=== PATIENT | female | born 1985 | race Caucasian/White ===

== ENCOUNTER 2019-06-03 00:49 | Day surgery (SDC) | payer OTHER, SELFPAY ==
[2019-06-01 14:29] VITALS: BMI 20.9
--- NOTE | 2019-06-02 07:27 | PM.IMHP ---
H&P: HPI History of Present Illness Chief complaint: missed ab Narrative: Salnia Pascual is a 34 year old female 4 para 2 in her 1st trimester with an abnormal . She will undergo a suction dilatation curettage. Risks and benefits were reviewed in full Review of Systems Review of Systems: All systems reviewed & are unremarkable except as noted in HPI and below PMFSH Past Medical History Medical History Back pain Depression Social History Social History Gender identity (if verbalized by the patient): Female Meds Home Medications and Allergies Home Medications Medication Instructions Recorded Confirmed Type No Home Medications 06/01/19 06/01/19 History Allergies Allergy/AdvReac Type Severity Reaction Status Date / Time No Known Allergies Allergy Unverified 06/01/19 14:27 Exam Const: General: no acute distress Eyes: General: appearance normal, both eyes and all related structures Neck: Neck: supple and no JVD Thyroid: thyroid normal Resp: Effort & Inspection: normal respiratory effort Auscultation: clear to auscultation bilaterally Cardio: Rate: regular rate Rhythm: regular rhythm GI: Inspection: non-distended GI Palp: Yes Soft to palpation, No Tenderness to palpation present (GI) and No Guarding due to palpation present (GI) Auscultation: normal bowel sounds : General: Yes bladder normal to palpation External Female Exam: normal external appearance Speculum Exam - Vagina: normal vaginal discharge and No vaginal bleeding Speculum Exam - Cervix: nontender Bimanual exam- vagina & uterus: bladder normal to palpation and No Cervical tenderness present OB/external & speculum: No vaginal bleeding Skin: General skin exam: no rashes or lesions noted Extrem: General: normal to inspection and no edema Psych: Mental Status: mental status grossly normal Affect: normal affect Assessment and Plan Additional Plan impression: 1St trimester missed AB Plan: Suction dilatation curettage
--- NOTE | 2019-06-03 06:34 | WPDHPUPDATE1 ---
History and Physical Update Update Date/Time: 06/03/19 06:34 History and Physical has been reviewed, including an updated exam of the patient. There are NO changes in the patient's condition. Risks, benefits, and alternatives have been discussed and questions answered. Patient agrees to proceed with procedure.
[2019-06-03 06:38] VITALS: BP 99/65; PULSE 85; RESP 20; TEMP 38.1; O2SAT 100
[2019-06-03] MEDS: LACTATED RINGERS 1,000 ML 30 ML IV CONT (06:45)
--- NOTE | 2019-06-03 07:10 | P.PNAN_ITS ---
Anes - Initial Pre Proc Eval Procedure: Operation Date: 06/03/19 07:30 Proposed Procedures p Suction Dilation and Curettage - Lukasz Poole MD Date/Time: 06/03/19 07:10 Surgeon: Lukasz Poole MD Pre Op Diagnosis: missed ab Patient Data Age: 34 Gender: F Height: 5 ft 5 in Weight: 57.2 kg Last Vital Signs Temp 100.5 F H 06/03/19 06:38 Pulse 85 06/03/19 06:38 Resp 20 06/03/19 06:38 BP 99/65 L 06/03/19 06:38 Pulse Ox 100 06/03/19 06:38 Allergies Allergy/AdvReac Type Severity Reaction Status Date / Time No Known Allergies Allergy Unverified 06/01/19 14:27 Home Medications Medication Instructions Recorded Confirmed Type hydrocodone-acetaminophen [[place]] 1 tablet PO Q4H PRN #20 tablet 06/03/19 Rx Patient hx anesthesia problems: none Family hx anesthesia problems: none PMFSH Past Medical History Medical History Back pain Depression Social History Social History Gender identity (if verbalized by the patient): Female Anes - Eval Final PreProcedure Day of Procedure 06/03/19 07:10 Patient weight: normal Heart: regular rate and rhythm Lungs: clear to auscultation Airway: Mallampati scale class II Neurological: alert and oriented Last oral intake: >/= 8 hours ASA classification: II Emergent: no Anesthetic plan: proceed Anesthesia type and monitoring: general GIVS and standard monitoring Informed Consent: The patient's anesthetic plan and its attendant risks and benefits were discussed with the patient/family/POA. Questions were solicited and answers provided to the satisfaction of the patient/family/POA.
--- NOTE | 2019-06-03 07:47 | PM.PROC ---
Procedure Note - Detailed Date of procedure: 06/03/19 Pre-op diagnosis: missed ab Surgeon: Lukasz Poole MD Postop diagnosis: 1st trimester missed AB Procedure: Suction dilatation and curettage EBL: 75cc Anesthesia: IV sedation and local Findings: Products of conception. Uterus is sounded to 11cm. Complications: None the patient is Rh positive and did not require RhoGAM Description of procedure: The patient was prepped and draped in the normal sterile fashion and placed in the dorsal lithotomy position. Under l excellent IV sedation a weighted speculum was placed in the posterior fornix of the vagina. The anterior lip of the cervix grasped with a single-tooth tenaculum. 2.5cc of 1% xylocaine anesthesia placed at 2, 4, 6, 8:00 a.m. in the cervix. Uterus sounded to 11cm and noted to be retroverted. Serial dilatation with fragmented dilators performed. This was followed by passage of the 10. Suction curette which was passed over the entire 360?. When a good grating sound was heard the procedure was finished. Blood loss was estimated at75cc. All sponge, needle, instrument counts were correct. There were no immediate complications
[2019-06-03 07:49] VITALS: BP 82/54; PULSE 82; RESP 12; O2SAT 99
[2019-06-03 08:00] VITALS: BP 97/55; PULSE 86; RESP 12; O2SAT 100
[2019-06-03 08:30] VITALS: BP 89/63; PULSE 80; RESP 14; O2SAT 100
== END 2019-06-03 09:15 | disposition home or self-care (01) ==
PROVIDERS: PCP Student in an Organized Health Care Education/Training Program; Visit Provider Obstetrics & Gynecology
PROC: (CPT 59820; principal; 2019-06-03 07:30)
DX: O02.1 Missed abortion (principal)
CPT/HCPCS: 59820; 88264; 88305; A9270; J2250; J2704; J3010; J7120

== ENCOUNTER 2019-10-06 08:53 | Day surgery (SDC) | payer OTHER, SELFPAY ==
[2019-10-06] VITALS (11 sets, daily range): BP systolic 93–119; BP diastolic 55–74; PULSE 66–88; RESP 11–18; TEMP 36–37; O2SAT 100
--- NOTE | ~2019-10-06 | CT_ITS ---
EXAMINATION: CT abdomen pelvis w con DATE: 10/06/2019 11:42 INDICATION: Abdominal pain TECHNIQUE: Computed tomography (CT) of the abdomen and pelvis was performed with 100 mL Omnipaque-350 intravenous contrast. Automated exposure control and iterative reconstruction technique were employe d. The dose-length product was 198.00 mGy-cm. COMPARISON: None FINDINGS: Lung bases are clear. Visualized inferior heart is normal. No pericardial or pleural effusion. Liver, gallbladder, spleen, pancreas, bilateral adrenal glands and kidneys are normal. There is a calcified appendicolith at the appendiceal orifice. The more distal appendix is dilated to 9 mm with thickened enhancing wall consistent with acute appendicitis. Bowels are otherwise unremarkable. Bladder and an teverted uterus are normal. 1.9 cm right adnexal cyst or follicle. Smaller 12 mm cyst at the left ova ry with more prominent peripheral enhancement possibly a corpus luteum cyst. Increased prominence of the contrast opacified left parametrial vessels and gonadal vein which can be seen with pelvic vascul ar congestion syndrome. Small amount of likely physiologic free fluid in the cul-de-sac. No abscess o r free intraperitoneal gas. No pathologically enlarged abdominal or pelvic lymphadenopathy. Bones are unremarkable. IMPRESSION: 1. Acute appendicitis. Dr. Estevez discussed these findings with Dr. Mckeon at 11:50 AM. Reviewed, dictated and finalized at location A. IMPRESSION: 1. Acute appendicitis. Dr. Estevez discussed these findings with Dr. Linda petit t 11:50 AM.
--- NOTE | 2019-10-06 09:09 | ED.ABDPAIN ---
HPI - Abdominal Pain General Chief Complaint: Abdominal Pain Stated Complaint: ABD PAIN [id number] Time Seen by Provider: 10/06/19 09:00 Source: RN notes reviewed History of Present Illness HPI narrative: Patient presents emergency room from home for abdominal pain. Patient states symptoms began last night approximately 2:30 AM. The pain is located in the epigastric region and associated with nausea and vomiting. Denies any fevers or chills chest pain shortness of breath diarrhea or any other symptoms. States she tried taking Tylenol at home with normal relief Related Data Allergies Allergy/AdvReac Type Severity Reaction Status Date / Time No Known Allergies Allergy Unverified 06/01/19 14:27 Review of Systems Review of Systems: Narrative: Gen.: Denies fevers or chills ENT: Denies congestion Respiratory: Denies shortness of breath or cough CV: Denies chest pain or palpitations GI: See HPI denies burning, urgency, frequency or hematuria Musculoskeletal: Denies back pain or muscle pain Neuro: Denies numbness, tingling, weakness or focal weakness Skin: Denies rash Except as documented, all other systems reviewed and negative [facility] Past Medical History Medical History Back pain Depression Social History Social History (Updated 10/06/19 @ 09:09 by Jesu Mckeon DO) Smoking status: Never smoker Gender identity (if verbalized by the patient): Female Exam Narrative: Exam Narrative: APPEARANCE: No acute distress, nontoxic, resting in bed HEENT: Normocephalic, atraumatic, OMM RESPIRATORY: No respiratory distress, clear to auscultation bilaterally with no rhonchi wheezing or rales CARDIOVASCULAR: RRR s murmur ABDOMINAL: Soft, nondistended, tender palpation epigastric and left upper quadrant, no tenderness right upper quadrant, right lower quadrant left lower quadrant, no rebound or guarding MUSCULOSKELETAl: Moves all extremities. No clubbing, cyanosis or edema. NEURO: Awake and alert. Following commands, speech normal, no focal deficits SKIN:: Warm, dry. Normal Color PSYCHIATRIC: Normal affect/mood Course Course Emergency Course: Discussed with Dr. Santos for general surgery presentation work-up. This time will take patient to the OR Discussed with patient results of work-up and plan for or in agreement at this time Vital Signs Vital signs: Vital Signs Temperature 97.4 F L 10/06/19 09:07 Pulse Rate 73 10/06/19 09:07 Respiratory Rate 18 10/06/19 09:07 Blood Pressure 114/74 10/06/19 09:07 Pulse Oximetry 100 10/06/19 09:07 Temperature 97.4 F L 10/06/19 09:07 Pulse Rate 76 10/06/19 12:08 Respiratory Rate 18 10/06/19 12:08 Blood Pressure 116/66 10/06/19 12:08 Pulse Oximetry 100 10/06/19 12:08 MDM - Abdominal Pain Lab Data Result diagrams: 10/06/19 09:11 10/06/19 09:11 Labs: Lab Results 10/06/19 10/06/19 10/06/19 Range/Units 09:11 09:11 09:12 WBC 12.5 H (4.5-10.0) K/mm3 RBC 4.98 (4.2-5.4) M/mm3 Hgb 15.0 (12.0-15.0) g/dL Hct 43.9 (37.0-47.0) % MCV 88.2 (80-100) fl MCH 30.1 (26-34) pg MCHC 34.2 (32-36) g/dl RDW 11.7 (11.5-14.5) % Plt Count 262 (150-375) k/mm3 MPV 10.2 (7.4-10.4) fl Immature Gran % (Auto) 0.5 (0-0.5) % Neut % (Auto) 78.4 H (45.5-73.1) % Lymph % (Auto) 12.2 L (18.3-44.2) % [place] % (Auto) 8.1 (2.6-8.5) % Eos % (Auto) 0.3 (0-4.4) % Baso % (Auto) 0.5 (0.2-1.2) % Lymph # (Auto) 1.52 (0.9-3.2) K/mm3 [place] # (Auto) 1.0 H (0.1-0.6) K/mm3 Eos # (Auto) 0.0 (0-0.3) K/mm3 Baso # (Auto) 0.1 (0.0-0.1) K/mm3 Abs Immat Gran (auto) 0.06 H (0.00-0.031) K/mm3 Absolute Neuts (auto) 9.8 H (1.3-6.7) K/mm3 Absolute Nucleated RBC 0.0 (0.0-0.012) K/mm3 Nucleated RBC % 0.0 (0.0-0.2) % Sodium 138 (137-145) mmol/L Potassium 4.0 (3.4-5.0) mmol/L Chloride 104 (
[2019-10-06] MEDS: SODIUM CHLORIDE 0.9% IV 1,000 ML 999 ML IV CONT (09:17)
[2019-10-06] MEDS: KETOROLAC 30 MG/ML VIAL (*BKC) IV PUSH (09:18)
[2019-10-06] MEDS: ONDANSETRON INJ 4 MG/2 ML VIAL IV PUSH ×2 (09:18→15:23)
[2019-10-06 09:19] LABS: Basophils Absolute Auto 0.1 K/mm3 (0.0-0.1); Basophils Percent Auto 0.5 % (0.2-1.2); Eosinophils Percent Auto 0.3 % (0-4.4); Hematocrit 43.9 % (37.0-47.0); Immature Granulocyte Absolute 0.06 K/mm3 (0.00-0.031); Immature Granulocyte Percent A 0.5 % (0-0.5); Lymphocytes Absolute Auto 1.52 K/mm3 (0.9-3.2); Lymphocytes Percent Auto 12.2 % (18.3-44.2); Mean Corpuscular HGB Conc 34.2 g/dl (32-36); Mean Corpuscular Hemoglobin 30.1 pg (26-34); Mean Corpuscular Volume 88.2 fl (80-100); Mean Platelet Volume 10.2 fl (7.4-10.4); Monocytes Percent Auto 8.1 % (2.6-8.5); Neutrophils Absolute Auto 9.8 K/mm3 (1.3-6.7); Neutrophils Percent Auto 78.4 % (45.5-73.1); Platelet Count Result 262 k/mm3 (150-375); Red Blood Count 4.98 M/mm3 (4.2-5.4); Red Cell Distribution Width 11.7 % (11.5-14.5); White Blood Count 12.5 K/mm3 (4.5-10.0)
[2019-10-06] MEDS: FAMOTIDINE 20 MG/2 ML VIAL IV PUSH (09:20)
[2019-10-06 09:25] LABS: Add Urine Microscopic? YES; Appearance Urine Clear (Clear); Bilirubin Urine Negative (Negative); Blood Urine Negative (Negative); Color Urine Yellow (Yellow); Glucose Urine UA Negative (Negative); Ketones Urine Negative (Negative); Leukocyte Esterase Ur Trace LEU/UL (Negative); Mucus Urine Moderate /lpf; Nitrate Urine Negative (Negative); Protein Urine Negative (Negative); RBC Urine 0-2 /hpf (0-2); Squamous Epithelial Cell Urine Many /hpf (Few); Urobilinogen Urine Negative mg/dL (<2.0); WBC Urine 0-3 /hpf
[2019-10-06 09:27] LABS: Specific Grav Ur 1.034 (1.001-1.035)
[2019-10-06 09:32] LABS: Alanine Aminotransferase 12 U/L (4-35); Albumin Level 4.7 g/dL (3.5-5.1); Alkaline Phosphatase 46 U/L (38-126); Anion Gap 10 mmol/L (8-16); Aspartate Amino Transferase 20 U/L (14-36); Bilirubin,Total 0.7 mg/dL (0.2-1.3); Blood Urea Nitrogen 21 mg/dL (7-17); Calcium 9.6 mg/dL (8.4-10.2); Carbon Dioxide 24 mmol/L (22-30); Chloride 104 mmol/L (98-107); Estimated Glomerular Filt Rate > 60; Glucose 111 mg/dL (65-105); Lipase 72 U/L (23-300); Sodium 138 mmol/L (137-145)
[2019-10-06] MEDS: PROMETHAZINE HCL 25 MG/ML AMPUL 12.5 MG IV PUSH (11:34)
--- NOTE | 2019-10-06 13:05 | WPDANESEPPF ---
Anes - Initial Pre Proc Eval Procedure: Operation Date: 10/06/19 14:30 Proposed Procedures p Laparoscopic Appendectomy, possible open - Shreya Santos MD Date/Time: 10/06/19 13:05 Surgeon: Shreya Santos MD Pre Op Diagnosis: ABD PAIN [id number] Patient Data Age: 34 Gender: F Height: Weight: 54.4 kg Last Vital Signs Temp 36.3 C L 10/06/19 09:07 Pulse 76 10/06/19 12:08 Resp 18 10/06/19 12:08 BP 116/66 10/06/19 12:08 Pulse Ox 100 10/06/19 12:08 Allergies Allergy/AdvReac Type Severity Reaction Status Date / Time No Known Allergies Allergy Unverified 06/01/19 14:27 Home Medications Medication Instructions Recorded Confirmed Type hydrocodone-acetaminophen [[place]] 1 tablet PO Q4H PRN #20 tablet 06/03/19 Rx Laboratory Tests 10/06/19 10/06/19 10/06/19 09:11 09:11 09:12 WBC 12.5 K/mm3 H K/mm3 (4.5-10.0) RBC 4.98 M/mm3 M/mm3 (4.2-5.4) Hgb 15.0 g/dL g/dL (12.0-15.0) Hct 43.9 % % (37.0-47.0) MCV 88.2 fl fl (80-100) MCH 30.1 pg pg (26-34) MCHC 34.2 g/dl g/dl (32-36) RDW 11.7 % % (11.5-14.5) Plt Count 262 k/mm3 k/mm3 (150-375) MPV 10.2 fl fl (7.4-10.4) Immature Gran % (Auto) 0.5 % % (0-0.5) Neut % (Auto) 78.4 % H % (45.5-73.1) Lymph % (Auto) 12.2 % L % (18.3-44.2) [place] % (Auto) 8.1 % % (2.6-8.5) Eos % (Auto) 0.3 % % (0-4.4) Baso % (Auto) 0.5 % % (0.2-1.2) Lymph # (Auto) 1.52 K/mm3 K/mm3 (0.9-3.2) [place] # (Auto) 1.0 K/mm3 H K/mm3 (0.1-0.6) Eos # (Auto) 0.0 K/mm3 K/mm3 (0-0.3) Baso # (Auto) 0.1 K/mm3 K/mm3 (0.0-0.1) Abs Immat Gran (auto) 0.06 K/mm3 H K/mm3 (0.00-0.031) Absolute Neuts (auto) 9.8 K/mm3 H K/mm3 (1.3-6.7) Absolute Nucleated RBC 0.0 K/mm3 K/mm3 (0.0-0.012) Nucleated RBC % 0.0 % % (0.0-0.2) Sodium 138 mmol/L mmol/L (137-145) Potassium 4.0 mmol/L mmol/L (3.4-5.0) Chloride 104 mmol/L mmol/L (98-107) Carbon Dioxide 24 mmol/L mmol/L (22-30) Anion Gap 10 mmol/L mmol/L (8-16) BUN 21 mg/dL H mg/dL (7-17) Creatinine 0.90 mg/dL mg/dL (0.7-1.0) Estim Creat Clear Calc Not Reportable Estimated GFR > 60 (59 - ) Glucose 111 mg/dL H mg/dL (65-105) Calcium 9.6 mg/dL mg/dL (8.4-10.2) Total Bilirubin 0.7 mg/dL mg/dL (0.2-1.3) AST 20 U/L U/L (14-36) ALT 12 U/L U/L (4-35) Alkaline Phosphatase 46 U/L U/L (38-126) Total Protein 9.0 g/dL H g/dL (6.3-8.2) Albumin 4.7 g/dL g/dL (3.5-5.1) Lipase 72 U/L U/L (23-300) Urine Color Yellow (Yellow) Urine Appearance Clear (Clear) Urine pH 5.0 (5.0-9.0) Ur Specific [place] 1.034 (1.001-1.035) Urine Protein Negative mg/dL mg/dL (Negative) Urine Glucose (UA) Negative mg/dL mg/dL (Negative) Urine Ketones Negative mg/dL mg/dL (Negative) Ur Blood (Man) Negative (Negative) Urine Nitrate Negative (Negative) Urine Bilirubin Negative (Negative) Urine Urobilinogen Negative mg/dL mg/dL (<2.0) Leukocyte Esterase Rfl Trace RUAL/UL H RAUL/UL (Negative) Urine RBC 0-2 /hpf /hpf (0-2) Urine WBC 0-3 /hpf /hpf Ur Squamous Epith Cells Many /hpf H /hpf (Few) Urine Mucus Moderate /lpf H /lpf Patient hx anesthesia problems: none Family hx anesthesia problems: none PMFSH Past Medical History Medical History Back pain Depression Social History Social History Smoking status: Never s
--- NOTE | 2019-10-06 13:06 | PM.IMHP ---
H&P: HPI History of Present Illness Date/Time: 10/06/19 13:06 Chief complaint: ABD PAIN [id number] Narrative: Salina Pascual is a 34 year old female presenting to ED c/o severe, diffuse abd pain that awakened her early this am. Pt reports pain is constant and now localized more to RLQ. Pt reports some anorexia and nausea. Pt also reports some mild radiation to her back. Pt denies any previous episodes. Review of Systems Constitutional: Constitutional: Denies anorexia, Denies chills, Denies fatigue, Denies headache(s), Denies lethargy, Denies malaise, Denies night sweats, Denies poor appetite, Denies weakness, Denies weight gain and Denies weight loss Eyes: Eyes: Reports no additional eye complaints and Denies change in vision ENT: Reports system reviewed and no additional complaints, except as documented, Reports Normal hearing present, Denies headache(s), Denies hearing loss and Denies sore throat Cardiovascular: Cardiovascular: Denies chest pain, Denies palpitations and Denies dyspnea Respiratory: Respiratory: Denies cough and Denies dyspnea Gastrointestinal: Gastrointestinal: Reports abdominal pain, Denies change in stool character, Denies constipation, Denies diarrhea, Reports nausea and Denies vomiting Genitourinary: Genitourinary: Denies urinary frequency, Denies dysuria and Denies urinary urgency Musculoskeletal: Musculoskeletal: Reports no additional musculoskeletal complaints Integumentary/Breasts: Skin/Breast: Denies pruritus, Denies lesions and Denies wounds Neurologic: Denies confusion and Denies headache(s) Psychiatric: Psychiatric: Reports no additional psychiatric complaints and Denies confusion Endocrine: Endocrine: Reports no additional endocrine complaints, Denies fatigue and Denies palpitations Hematologic/Lymphatic: Hematologic/Lymphatic: Reports no additional hematologic/lymphatic complaints Allergic/Immunologic: Allergic/Immunologic: Reports no additional allergic/immunologic complaints PMF Past Medical History Medical History Back pain Depression Social History Social History Smoking status: Never smoker Gender identity (if verbalized by the patient): Female Meds Home Medications and Allergies Home Medications Medication Instructions Recorded Confirmed Type hydrocodone-acetaminophen [[place]] 1 tablet PO Q4H PRN #20 tablet 06/03/19 Rx Allergies Allergy/AdvReac Type Severity Reaction Status Date / Time No Known Allergies Allergy Unverified 06/01/19 14:27 Vital Signs Vital Signs - 24 hr 10/06/19 09:07 10/06/19 12:08 Temperature 36.3 C L Pulse Rate 73 76 Respiratory Rate 18 18 Blood Pressure 114/74 116/66 Pulse Oximetry 100 100 Exam Const: General: cooperative, healthy appearing, no acute distress and well developed; No confusion Orientation/consciousness: patient oriented x3 and No confusion HENMT: Head: normal to inspection, normocephalic and atraumatic Mouth: Yes Normal oral and palatal mucosa present and Yes moist mucous membranes Teeth and gingiva: dentition normal Eyes: Conjunctivae: conjunctivae normal Pupils: Equal, round and reactive pupils present EOM: EOMs intact bilaterally Neck: Neck: normal visual inspection, full ROM, no lymphadenopathy, trachea midline and supple Lymphatic: no lymphadenopathy noted Chest: Chest palpation & inspection: normal inspection of the chest Resp: Effort & Inspection: normal respiratory effort Auscultation: clear to auscultation bilaterally Cardio: Jugular venous distension: no JVD Rate: regular rate Rhythm: regular rhythm Heart sounds: S1 normal heart sound present and S2 normal heart sound present Peripheral pulses: Peripheral pulses 2+ throughout GI: Inspection: normal to inspection and distended GI Palp: Yes Soft to palpation, Yes Tenderness to palpation present (GI), Yes Guarding due to palpat
[2019-10-06] MEDS: LACTATED RINGERS 1,000 ML 30 ML IV CONT ×2 (13:24→14:40)
[2019-10-06] MEDS: SCOPOLAMINE 1.5 MG PATCH TRANSDERM (13:25)
[2019-10-06] MEDS: BUPIVACAINE/EPINEPHRINE 0.5% 30 ML VIAL INFILTRATE (14:01)
--- NOTE | 2019-10-06 14:19 | PM.PROC ---
Procedure Note - Detailed Date of procedure: 10/06/19 Pre-op diagnosis: ABD PAIN [id number] acute appendicitis Post-op diagnosis: same Procedure performed: Laparoscopic appendectomy Description of procedure: The patient was brought into the operating room placed in the supine position. After adequate induction of general anesthesia, the patient was prepped and draped in normal sterile fashion. A time-out was then done to verify the patient's identity as well as the procedure being performed. I began by making a 5 mm incision in the infraumbilical region. A 5 mm Optiview trocar within used to gain access into the peritoneal cavity. Once into the peritoneal cavity, CO2 gas was insufflated. After adequate pneumoperitoneum was achieved, the laparoscope was placed into the 5 mm trocar. Under direct visualization, I went ahead and placed a further 5 mm suprapubic port as well as a 12 mm port in the left lower abdomen. At this point, I was able to visualize cecum. The cecum was retracted both cephalad and medial, and this allowed us to expose the appendix. The appendix was noted to be very dilated, injected, and inflamed. There was no obvious perforation of the appendix. I then grasped the appendix near the tip of the appendix and retracted both anterior and lateral. This allowed exposure of the base of the appendix with the cecum. I then created a window with the Angie dissector between the appendix and the mesoappendix at the base of the appendix. Once this was achieved, a vascular staple load on the Endo-HARESH was placed through the 12 mm port site and subsequently transected the mesoappendix. I then reloaded the Endo-HARESH with a blue staple load and transected the base of the appendix with the cecum. Once the appendiceal specimen was completely detached, a Endo pouch was placed through the 12 mm port site. The appendix was placed into the Endo pouch and removed through the 12 mm port site. The appendix will now be sent to pathology for further review. I then visualized the right lower quadrant, both staple lines were noted to be intact and hemostatic. No other pathology was noted in the right lower quadrant or pelvis. I then moved the laparoscope to the 5 mm suprapubic port. I then visualized our port of entry at the 5 mm infraumbilical site. No iatrogenic injury or other pathology was seen in the upper abdomen. I then desufflated the abdomen and all ports were removed. The fascia of the 12 mm port site was closed with an 0 Vicryl figure of 8 suture. All port sites were then closed with 4 O Monocryl subcuticular suture. The patient tolerated the procedure well and was extubated in the operating room postoperatively. The patient will be transferred to the recovery room in stable condition. Implants: none Anesthesia: GETA Surgeon: Shreya Santos MD Estimated blood loss (mL): 5 Drains: No Packing: No Pathology: yes Complications: No immediate complications Condition: stable Disposition: PACU Findings: Acute uncomplicated appendicitis
[2019-10-06] MEDS: diphenhydrAMINE HCl INJ 50 MG/ML VIAL 12.5 MG IV PUSH (15:47)
== END 2019-10-06 16:51 | disposition home or self-care (01) ==
LOC: ANHED 12:14 → ANHSURGERY 12:33
PROVIDERS: Emergency Provider Emergency Medicine; PCP Student in an Organized Health Care Education/Training Program; Visit Provider Surgery
PROC: 0DTJ4ZZ Resection of Appendix, Percutaneous Endoscopic Approach (ICD-10-PCS; CPT 44970; principal; 2019-10-06 14:30)
DX: K35.80 Unspecified acute appendicitis (principal); M54.5 Low back pain
CPT/HCPCS: 44970; 36415; 74177; 80053; 81001; 81025; 83690; 85025; 88304; 96361; 96365; 96375; 99285; A9270; J0330; J1100; J1170; J1200; J1885; J2250; J2405; J2543; J2550; J2704; J3010; J7030; J7120; Q9967

== ENCOUNTER 2020-04-17 09:47 | Outpatient (CLI) | payer OTHER, SELFPAY | END 2020-04-17 09:48 | disposition home or self-care (01) | LOC: ANHCOVIDVC 09:47 | PROVIDERS: PCP Student in an Organized Health Care Education/Training Program; Visit Provider Student in an Organized Health Care Education/Training Program | DX: Z23 Encounter for immunization (principal) | CPT/HCPCS: 0001A; 91300 ==

== ENCOUNTER 2020-05-08 09:45 | Outpatient (CLI) | payer OTHER, SELFPAY | END 2020-05-08 09:46 | disposition home or self-care (01) | LOC: ANHCOVIDVC 09:46 | PROVIDERS: PCP Student in an Organized Health Care Education/Training Program; Visit Provider Student in an Organized Health Care Education/Training Program | DX: Z23 Encounter for immunization (principal) | CPT/HCPCS: 0002A; 91300 ==

== ENCOUNTER 2020-09-28 14:50 | Outpatient (CLI) | payer OTHER, SELFPAY ==
--- NOTE | 2020-09-28 15:38 | PC.NURSE ---
SVE 2/-2
[2020-09-28 15:43] VITALS: BP 110/75; PULSE 97
--- NOTE | 2020-09-28 16:42 | P.PNOB_ITS ---
OB - Triage/Final Diagnosis Visit Information Date of evaluation: 09/28/20 Reason for evaluation: other (leking) Comments/Additional reasons for admission: I have assessed the risk for this patient, Salina Pascual, and determined that she would benefit from obser vation care.
== END 2020-09-28 14:51 | disposition home or self-care (01) ==
LOC: ANHOBOP 15:57
PROVIDERS: PCP Student in an Organized Health Care Education/Training Program; Visit Provider Obstetrics & Gynecology
DX: O42.90 Premature rupture of membranes, unspecified as to length of time between rupture and onset of labor, unspecified weeks of gestation (principal); Z3A.00 Weeks of gestation of pregnancy not specified
CPT/HCPCS: 59025; 84112

== ENCOUNTER 2020-10-06 08:29 | Inpatient (IN) | payer OTHER, SELFPAY ==
[2020-10-06] VITALS (111 sets, daily range): BP systolic 77–126; BP diastolic 29–83; PULSE 36–178; RESP 18; TEMP 36.3–36.9; O2SAT 82–100; BMI 25.0
[2020-10-06] MEDS: LACTATED RINGERS 1,000 ML 999 ML IV CONT (09:05)
[2020-10-06 09:08] LABS: Basophils Absolute Auto 0.1 K/mm3 (0.0-0.1); Basophils Percent Auto 0.5 % (0.2-1.2); Eosinophils Absolute Auto 0.1 K/mm3 (0-0.3); Eosinophils Percent Auto 1.2 % (0-4.4); Hematocrit 38.5 % (37.0-47.0); Hemoglobin 13.4 g/dL (12.0-15.0); Immature Granulocyte Absolute 0.07 K/mm3 (0.00-0.031); Immature Granulocyte Percent A 0.6 % (0-0.5); Lymphocytes Absolute Auto 2.54 K/mm3 (0.9-3.2); Lymphocytes Percent Auto 22.4 % (18.3-44.2); Mean Corpuscular HGB Conc 34.8 g/dl (32-36); Mean Corpuscular Volume 91.9 fl (80-100); Mean Platelet Volume 11.2 fl (7.4-10.4); Monocytes Absolute Auto 1.3 K/mm3 (0.1-0.6); Monocytes Percent Auto 11.5 % (2.6-8.5); Neutrophils Absolute Auto 7.2 K/mm3 (1.3-6.7); Neutrophils Percent Auto 63.8 % (45.5-73.1); Platelet Count Result 203 k/mm3 (150-375); Red Blood Count 4.19 M/mm3 (4.2-5.4); Red Cell Distribution Width 12.7 % (11.5-14.5); White Blood Count 11.3 K/mm3 (4.5-10.0)
[2020-10-06] MEDS: fentaNYL CITRATE INJ (*CRX) 100 MCG/2 ML VIAL IV PUSH (09:08)
[2020-10-06] MEDS: ONDANSETRON INJ 4 MG/2 ML VIAL IV PUSH (09:11)
--- NOTE | 2020-10-06 09:18 | WPDANESEPPF ---
Anes - Initial Pre Proc Eval Date/Time: 10/06/20 09:18 Surgeon: Lukasz Poole MD Pre Op Diagnosis: In Labor Patient Data Age: 35 Gender: F Height: Weight: Last Vital Signs Pulse 76 10/06/20 09:00 BP 114/83 10/06/20 09:00 Allergies Allergy/AdvReac Type Severity Reaction Status Date / Time No Known Allergies Allergy Verified 10/19/19 11:02 Home Medications Medication Instructions Recorded Confirmed Type PNV cmb#95-ferrous fumarate-FA 1 tablet PO DAILY 09/17/20 09/17/20 History [] ergocalciferol (vitamin D2) 1,250 mcg PO WEEKLY 09/17/20 09/17/20 History [Vitamin D2] Laboratory Tests 10/06/20 10/06/20 10/06/20 08:54 08:54 09:03 WBC 11.3 K/mm3 H K/mm3 (4.5-10.0) RBC 4.19 M/mm3 L M/mm3 (4.2-5.4) Hgb 13.4 g/dL g/dL (12.0-15.0) Hct 38.5 % % (37.0-47.0) MCV 91.9 fl fl (80-100) MCH 32.0 pg pg (26-34) MCHC 34.8 g/dl g/dl (32-36) RDW 12.7 % % (11.5-14.5) Plt Count 203 k/mm3 k/mm3 (150-375) MPV 11.2 fl H fl (7.4-10.4) Immature Gran % (Auto) 0.6 % H % (0-0.5) Neut % (Auto) 63.8 % % (45.5-73.1) Lymph % (Auto) 22.4 % % (18.3-44.2) [place] % (Auto) 11.5 % H % (2.6-8.5) Eos % (Auto) 1.2 % % (0-4.4) Baso % (Auto) 0.5 % % (0.2-1.2) Lymph # (Auto) 2.54 K/mm3 K/mm3 (0.9-3.2) [place] # (Auto) 1.3 K/mm3 H K/mm3 (0.1-0.6) Eos # (Auto) 0.1 K/mm3 K/mm3 (0-0.3) Baso # (Auto) 0.1 K/mm3 K/mm3 (0.0-0.1) Abs Immat Gran (auto) 0.07 K/mm3 H K/mm3 (0.00-0.031) Absolute Neuts (auto) 7.2 K/mm3 H K/mm3 (1.3-6.7) Absolute Nucleated RBC 0.0 K/mm3 K/mm3 (0.0-0.012) Nucleated RBC % 0.0 % % (0.0-0.2) RPR Pending HIV 1&2 Ab/P24 Ag 4thGn Pending Patient hx anesthesia problems: none Family hx anesthesia problems: none [facility] Past Medical History Medical History (Updated 10/19/19 @ 11:05 by Delilah Blankenship) Back pain Depression Surgical History Surgical History (Updated 10/19/19 @ 10:44 by Ivory Hoskins CMA) History of laparoscopic appendectomy 10/06/19 Family History Family History (Updated 09/17/20 @ 14:36 by Reta Thomas RN) Father Cerebrovascular accident Social History Social History Smoking status: Never smoker Substance use: never Gender identity (if verbalized by the patient): Female Spiritual care concerns: No Anes - Eval Final PreProcedure Day of Procedure 10/06/20 09:18 Patient weight: overweight Heart: regular rate and rhythm Lungs: clear to auscultation and normal air movement Airway: Mallampati scale class II Neurological: alert and oriented Last oral intake: >/= 8 hours ASA classification: II Emergent: no Anesthetic plan: proceed Anesthesia type and monitoring: regional epidural Informed Consent: The patient's anesthetic plan and its attendant risks and benefits were discussed with the patient/family/POA. Questions were solicited and answers provided to the satisfaction of the patient/family/POA.
--- NOTE | 2020-10-06 09:21 | LDADM ---
This patient, Salina Pascual, was admitted to Labor/Delivery/Recovery 104 on 10/06/20 at 08:29. Plans for labor, pain management and were discussed with patient. Patient/family oriented to hospital policies and general routines including ID bracelet, bed and alarms, visiting hours, pain management, procedures, bathroom and other care routines, personal items, smoking policy, room service/diet and guest tray routines, infant security routines, and visiting hours. Patient/Family are encouraged to report perceived risks to care and to ask questions if they do not understand what they are told or what they should do. See OBIX for further documentation.
[2020-10-06] MEDS: LACTATED RINGERS 1,000 ML 125 ML IV CONT (09:34)
[2020-10-06 10:04] LABS: HIV 1/2 Ab P24 Ag Result Negative (Negative)
--- NOTE | 2020-10-06 10:22 | WPDOBADMIT ---
Obstetrics - Admit Note Admission Note: record reviewed. Additions to the history and/or subsequent changes in the physical findings follow. 35 y/o at 39 2/7 weeks here with contractions. GBS neg. Labor diagnosed. Now comfortable with epidural. AVSS NST reactive TOCO: contractions every 2-5 min ABD soft, nontender, gravid, vertex EXT nontender Cervix 7/90/0. AROM with clear fluid. Vertex. A: IUP at term with labor. P: Anticipate .
[2020-10-06] MEDS: PHENYLEPHRINE 1,000 MCG/10 ML SYRINGE 100 MCG IV PUSH (10:34)
[2020-10-06] MEDS: OXYTOCIN 30 UNITS/NS 500 ML 30 UNITS/500 ML BAG 999 UNITS IV CONT (11:45)
--- NOTE | 2020-10-06 12:04 | PM.OBPRVD ---
OB - Delivery Note Procedure Delivery date: 10/06/20 Procedure: Intrapartal events: None Induction method: none Delivery augmentation: rupture of membranes Delivery monitor: external FHT and external uterine Route of delivery: Laceration Description: Vaginal - 1st Degree Delivery repair: vicryl (3-0) Specimen: Yes (cord blood) Quantitative Blood Loss (ml): 65 Anesthesia type: Epidural Disposition: PACU Complications: None Narrative: 35 y/o at 39 2/7 weeks gestation who presented to the hospital with contractions. Labor was diagnosed. She received an epidural for pain control. Amniotomy was performed with return of clear fluid. Her labor progressed and her cervix dilated completely. She pushed with good effort and delivered the 's head to the perineum, followed by the body. The nose and mouth were bulb suctioned. After a delay, the cord was clamped and cut. The infant was handed off the field. Cord blood was collected. The placenta delivered spontaneously and was grossly normal in appearance. The usual 3 vessel cord was noted. A shallow distal vaginal laceration was sustained. This was reapproximated using a single [id number] suture of 3 0 Vicryl. Excellent hemostasis resulted as did excellent reapproximation of the normal anatomy. Needle and instrument counts were correct. The patient was taken to recovery room in stable condition. The infant went to the nursery in stable condition. I was present and scrubbed for the entire delivery. Baby Date of : 10/06/20 Time of : 11:43 Weeks of gestation at delivery: 39 Infant gender: Male Weight (pounds): 7 Weight (ounces): 5 presentation: vertex position: Left Occiput Anterior Placenta delivery description: Spontaneous and Normal Configuration cord vessel description: 3 Vessels and Delayed Cord Clamping score one minute: 9 score five minutes: 9
--- NOTE | 2020-10-06 12:07 | PM.OBDSVD ---
DS: Admitting Diagnosis Admitting Diagnosis IUP at 39 2/7 weeks Labor DS: Discharge Diagnosis Discharge Diagnosis (1) (normal spontaneous vaginal delivery): Code(s): O80 - Encounter for full-term uncomplicated delivery Status: Acute OB - DS: Summary OB Procedures : None OB Procedures Intrapartum: Spontaneous Vag Delivery OB Procedures: : None DS: Data Data Completed and Pending Labs on day of discharge: Labs from last 24 hours 10/06/20 10/06/20 10/06/20 09:03 08:54 08:54 WBC RBC Hgb Hct MCV MCH MCHC RDW Plt Count MPV Immature Gran % (Auto) Neut % (Auto) Lymph % (Auto) [place] % (Auto) Eos % (Auto) Baso % (Auto) Lymph # (Auto) [place] # (Auto) Eos # (Auto) Baso # (Auto) Abs Immat Gran (auto) Absolute Neuts (auto) Absolute Nucleated RBC Nucleated RBC % RPR Pending HIV 1&2 Ab/P24 Ag 4thGn Negative Blood Type A Positive Antibody Screen Negative 10/06/20 08:54 WBC 11.3 H RBC 4.19 L Hgb 13.4 Hct 38.5 MCV 91.9 MCH 32.0 MCHC 34.8 RDW 12.7 Plt Count 203 MPV 11.2 H Immature Gran % (Auto) 0.6 H Neut % (Auto) 63.8 Lymph % (Auto) 22.4 [place] % (Auto) 11.5 H Eos % (Auto) 1.2 Baso % (Auto) 0.5 Lymph # (Auto) 2.54 [place] # (Auto) 1.3 H Eos # (Auto) 0.1 Baso # (Auto) 0.1 Abs Immat Gran (auto) 0.07 H Absolute Neuts (auto) 7.2 H Absolute Nucleated RBC 0.0 Nucleated RBC % 0.0 RPR HIV 1&2 Ab/P24 Ag 4thGn Blood Type Antibody Screen Discharge Plan Discharge Attending physician on discharge: Jovany Rdz Consulting providers: Son Plascencia Discharging Clinician: Jovany Rdz Patient Disposition: Home, Self-Care Activity: pelvic rest Diet: regular Discharge Instructions: Call or return if temperature above 100.4? F, increased abdominal pain, increased vaginal bleeding or any new problems. Education: Mom and Baby Guide Given to: Mother Follow-Up: Call your delivering provider's office for an appointment to be seen in: 6 Weeks Mom and baby should come to the [facility] for the follow-up appointment. Appointment Date/Time: October 09, 2020 at 10:00 am What to expect at your follow-up visit: Physical Assessment Call [phone] if you are unable to keep your appointment time. BREAST CARE: * Wear a snug supportive bra. * For engorgement discomfort: Breast Feeding: * Apply warm moist washcloths * Express milk as needed to relieve engorgement * Wear loose clothing * For sore nipples: * Identify correct latch-on * Apply warm moist washcloths before and after nursing * Air dry nipples after nursing * May apply Lansinoh cream to nipples PERINEAL CARE: * Until bleeding stops, use your afshin bottle after urinating * Change your pad frequently throughout the day * You may take sitz baths several times a day (fill your bathtub with warm water and soak for 20 minutes.) Do NOT bathe in the water * No tub baths until seen by your physician - You may shower ACTIVITY: * Rest as much as possible. * Do not exercise or lift anything heavier than your baby (such as laundry or other children.) * Avoid stairs or driving as much as possible. * Do not put anything into the vagina. No douching, tampons, or sexual activity until seen by physician. NOTIFY PHYSICIAN IF YOU HAVE ANY QUESTIONS OR IF ANY OF THE FOLLOWING SYMPTOMS OCCUR: * If your stitches become red, swollen, or more painful than what you have experienced in the hospital. * If your vaginal bleeding becomes foul smelling. * If your vaginal bleeding becomes more heavy than a period or if your bleeding changes from pink to bright red. However, you may pass an occasional walnut-sized clot once or twice for the first week . * If you experience a sharp, shooting pain in you calves. * If you discover a h
[2020-10-06] MEDS: OXYTOCIN 30 UNITS/NS 500 ML 30 UNITS/500 ML BAG 125 UNITS IV CONT (12:48)
[2020-10-06] MEDS: WITCH HAZEL 40 PADS 1 PAD TOPICAL (13:47)
[2020-10-06] MEDS: BENZOCAINE 20% AER SPR (*SP) 56 GM CAN 1 SPRAY TOPICAL (13:48)
--- NOTE | 2020-10-06 15:11 | OBPPTRN ---
Patient transferred to post room # 291 via wheelchair. Support person present. Oriented to unit, room, information board, rooming in, admission packet and security measures. Patient verbalizes understanding.
[2020-10-06] MEDS: IBUPROFEN 600 MG TABLET PO (17:07)
[2020-10-07 00:15] VITALS: BP 106/65; PULSE 86; RESP 16; TEMP 36.9; O2SAT 100
[2020-10-07 03:15] VITALS: BP 105/61; PULSE 74; RESP 18; TEMP 36.8; O2SAT 100
[2020-10-07 04:14] LABS: Hematocrit 35.1 % (37.0-47.0); Hemoglobin 12.1 g/dL (12.0-15.0)
--- NOTE | 2020-10-07 07:51 | P.PNOB_ITS ---
OB - PN: Subj Subjective Date/time seen: 10/07/20 07:51 Narrative: Pain OK. Would like circumcision for son. OB - PN: Obj Data Labs CBC & Chem 7: 10/07/20 04:00 Labs: Laboratory Results - last 24 hr 10/06/20 10/06/20 10/06/20 08:54 08:54 09:03 WBC 11.3 H RBC 4.19 L Hgb 13.4 Hct 38.5 MCV 91.9 MCH 32.0 MCHC 34.8 RDW 12.7 Plt Count 203 MPV 11.2 H Immature Gran % (Auto) 0.6 H Neut % (Auto) 63.8 Lymph % (Auto) 22.4 [place] % (Auto) 11.5 H Eos % (Auto) 1.2 Baso % (Auto) 0.5 Lymph # (Auto) 2.54 [place] # (Auto) 1.3 H Eos # (Auto) 0.1 Baso # (Auto) 0.1 Abs Immat Gran (auto) 0.07 H Absolute Neuts (auto) 7.2 H Absolute Nucleated RBC 0.0 Nucleated RBC % 0.0 HIV 1&2 Ab/P24 Ag 4thGn Negative Blood Type A Positive Antibody Screen Negative 10/07/20 04:00 WBC RBC Hgb 12.1 Hct 35.1 L MCV MCH MCHC RDW Plt Count MPV Immature Gran % (Auto) Neut % (Auto) Lymph % (Auto) [place] % (Auto) Eos % (Auto) Baso % (Auto) Lymph # (Auto) [place] # (Auto) Eos # (Auto) Baso # (Auto) Abs Immat Gran (auto) Absolute Neuts (auto) Absolute Nucleated RBC Nucleated RBC % HIV 1&2 Ab/P24 Ag 4thGn Blood Type Antibody Screen OB - PN A/P Plan Comments: A: PPD#1, doing well. P: Routine care. Reviewed circ. Exam Psych: Other: AVSS ABD soft, nontender, fundus firm EXT nontender
--- NOTE | 2020-10-07 07:55 | WPDANLDPN2 ---
Anes-Prog Note L&D Date/Time: 10/07/20 07:55 Comfortable throughout: labor and delivery Neuraxial method: epidural Epidural/Spinal procedure site: clean & non-tender Neuro status: Neuro function grossly intact. Cardiovascular status: normal Respiratory status: normal Airway patency: baseline Mental status: baseline Post-Op hydration status: normal Vital Signs: Last Vital Signs Temp 98.3 F 10/07/20 03:15 Pulse 74 10/07/20 03:15 Resp 18 10/07/20 03:15 BP 105/61 10/07/20 03:15 Pulse Ox 100 10/07/20 03:15 Pain score (VAS): 0 I/O: Intake & Output 10/06/20 10/06/20 10/07/20 15:59 23:59 07:59 Intake Total 2400 Output Total 553 Balance 1847 Post-procedural complaints: none Patient feedback: Patient satisfied with anesthetic care.
[2020-10-07 08:00] VITALS: BP 105/66; PULSE 82; RESP 18; TEMP 36.8
[2020-10-07] MEDS: IBUPROFEN 600 MG TABLET PO ×2 (09:05)
[2020-10-07] MEDS: MULTIVIT/MIN/PREN/FOL AC/IRON TABLET 1 TAB PO (09:05)
[2020-10-08 09:57] LABS: Rapid Plasma Reagin Non-Reactive (NonReactive)
[2020-10-09 10:04] VITALS: BP 102/71; PULSE 75; RESP 20; TEMP 37.2; O2SAT 99
== END 2020-10-07 14:45 | disposition home or self-care (01) | DRG 807 ==
LOC: ANHLDR 12:08 → ANHOB2 10-07 13:59 → ANHLDR 10-10 08:21 → ANHOB2 10-10 08:21
PROVIDERS: Admitting Provider Obstetrics & Gynecology; PCP Student in an Organized Health Care Education/Training Program; Visit Provider Obstetrics & Gynecology
DX: O99.344 Other mental disorders complicating childbirth (principal); Z37.0 Single live birth; Z3A.39 39 weeks gestation of pregnancy; F32.9 Major depressive disorder, single episode, unspecified; O36.8330 Maternal care for abnormalities of the fetal heart rate or rhythm, third trimester, not applicable or unspecified; O70.0 First degree perineal laceration during delivery
CPT/HCPCS: 36415; 85014; 85018; 85025; 86592; 86703; 86850; 86900; 86901; A9270; G0432; J2370; J2405; J2590; J2795; J3010; J7120

== ENCOUNTER 2022-05-19 08:31 | Outpatient (CLI) | payer OTHER, SELFPAY ==
[2022-05-19 09:15] LABS: Basophils Percent Auto 0.8 % (0.2-1.2); Eosinophils Absolute Auto 0.1 K/mm3 (0-0.3); Eosinophils Percent Auto 1.8 % (0-4.4); Hematocrit 43.2 % (37.0-47.0); Hemoglobin 14.2 g/dL (12.0-15.0); Immature Granulocyte Absolute 0.01 K/mm3 (0.00-0.031); Immature Granulocyte Percent A 0.2 % (0-0.5); Lymphocytes Absolute Auto 1.83 K/mm3 (0.9-3.2); Lymphocytes Percent Auto 36.5 % (18.3-44.2); Mean Corpuscular HGB Conc 32.9 g/dl (32-36); Mean Corpuscular Hemoglobin 30.7 pg (26-34); Mean Corpuscular Volume 93.3 fl (80-100); Mean Platelet Volume 10.5 fl (7.4-10.4); Monocytes Absolute Auto 0.6 K/mm3 (0.1-0.6); Neutrophils Absolute Auto 2.5 K/mm3 (1.3-6.7); Neutrophils Percent Auto 49.7 % (45.5-73.1); Platelet Count Result 223 k/mm3 (150-375); Red Blood Count 4.63 M/mm3 (4.2-5.4); Red Cell Distribution Width 12.3 % (11.5-14.5)
[2022-05-19 09:28] LABS: Alanine Aminotransferase 14 U/L (6-35); Albumin Level 4.7 g/dL (3.5-5.1); Alkaline Phosphatase 33 U/L (38-126); Anion Gap 6 mmol/L (8-16); Aspartate Amino Transferase 17 U/L (14-36); Bilirubin,Total 0.5 mg/dL (0.2-1.3); Blood Urea Nitrogen 21 mg/dL (7-17); Calcium 9.2 mg/dL (8.4-10.2); Carbon Dioxide 28 mmol/L (22-30); Chloride 106 mmol/L (98-107); Cholesterol 159 mg/dL (0-200); Estimated Glomerular Filt Rate > 60; Glucose 97 mg/dL (65-110); HDL Direct 54 mg/dL; Potassium 4.3 mmol/L (3.4-5.0); Sodium 140 mmol/L (137-145); Triglycerides 73 mg/dL (<150)
[2022-05-19 09:39] LABS: LDL Cholesterol Direct 76 mg/dL
[2022-05-19 10:15] LABS: Hepatitis C Virus Antibody Negative (Negative)
== END 2022-05-19 08:32 | disposition home or self-care (01) ==
PROVIDERS: PCP Student in an Organized Health Care Education/Training Program; Visit Provider Student in an Organized Health Care Education/Training Program
DX: Z13.220 Encounter for screening for lipoid disorders (principal); Z00.00 Encounter for general adult medical examination without abnormal findings; Z13.29 Encounter for screening for other suspected endocrine disorder; Z13.228 Encounter for screening for other metabolic disorders; Z13.0 Encounter for screening for diseases of the blood and blood-forming organs and certain disorders involving the immune mechanism; Z11.59 Encounter for screening for other viral diseases
CPT/HCPCS: 36415; 80053; 80061; 84443; 85025; 86803

== ENCOUNTER 2023-01-05 08:55 | Emergency (ER) | payer OTHER, SELFPAY ==
[2023-01-05 09:12] VITALS: BP 113/70; PULSE 87; RESP 16; TEMP 35.9; O2SAT 100
--- NOTE | 2023-01-05 10:00 | ED.URI ---
HPI - URI/Sore Throat General Chief Complaint: Upper Respiratory Infection Stated Complaint: Sore Throat Time Seen by Provider: 01/05/23 09:52 Source: patient and RN notes reviewed Mode of arrival: ambulatory Limitations: no limitations History of Present Illness HPI Narrative: Patient presents today with a 4 day history of fever up to 104, body aches, cough, rhinorrhea, with sore throat x2 days. She has done 2 home COVID test that were negative. She has been taking Tylenol at home with some relief and currently rates her pain 3/10. History of tonsillectomy. Patient works in a preschool. Related Data Home Medications Medication Instructions Recorded Confirmed No Home Medications 01/05/23 01/05/23 Allergies Allergy/AdvReac Type Severity Reaction Status Date / Time No Known Allergies Allergy Verified 01/05/23 09:20 Review of Systems Review of Systems: CONSTITUTIONAL: chills, or sweats.+ body aches, fever EYES: Denies visual changes, redness, or discharge. ENT: Denies congestion, or otalgia.+ sore throat CARDIOVASCULAR: Denies chest pain, palpitations, or edema. RESPIRATORY: Denies dyspnea.+ cough GASTROINTESTINAL: Denies abdominal pain, nausea, vomiting, or diarrhea. GENITOURINARY: Denies dysuria or hematuria. SKIN: Denies rash, itching, or wounds. MUSCULOSKELETAL: Denies back pain, joint pain, or myalgia. NEUROLOGIC: Denies headache, numbness, tingling, or weakness. PSYCH: Denies depression or anxiety. [facility] Past Medical History Medical History (Updated 01/05/23 @ 10:19 by Lizzette Mao, [employer], ) Back pain Depression Surgical History Surgical History History of laparoscopic appendectomy 10/06/19 Family History Family History Father Cerebrovascular accident Social History Social History Smoking status: Never smoker Second hand tobacco smoke exposure: No Substance use: never Gender identity (if verbalized by the patient): Female Spiritual care concerns: No Comments At time of signature, I have reviewed and agree with nursing past medical, surgical, social and family history unless otherwise noted. Please see nursing chart for further information. There is no relevant family history pertinent to the presenting complaint Exam Narrative: GENERAL: Well-appearing, well-nourished, and in no acute distress. HEAD: Normocephalic, atraumatic. EYES: EOMI. No redness or drainage. Conjunctivae normal. ENT: Mucous membranes pink and moist. Nares mildly congested. No rhinorrhea. TMs normal bilaterally. Throat normal. Uvula midline. NECK: Normal AROM. Supple. No lymphadenopathy. CHEST: No respiratory distress. Clear to auscultation. HEART: Regular rate and rhythm. No murmur appreciated. EXTREMITIES: Normal range of motion. No edema. SKIN: Warm, dry, no rash. Capillary refill normal. Normal skin turgor. NEURO: No focal deficits. Alert and oriented x3. Gait steady. PSYCH: Normal affect. No signs of depression or anxiety. Course Course Level of Care: Express Care Visit Vital Signs Vital signs: Vital Signs Temperature 96.7 F L 01/05/23 09:12 Pulse Rate 87 01/05/23 09:12 Respiratory Rate 16 01/05/23 09:12 Blood Pressure 113/70 01/05/23 09:12 Pulse Oximetry 100 01/05/23 09:12 Oxygen Delivery Room Air 01/05/23 09:12 Temperature 96.7 F L 01/05/23 09:12 Pulse Rate 87 01/05/23 09:12 Respiratory Rate 16 01/05/23 09:12 Blood Pressure 113/70 01/05/23 09:12 Pulse Oximetry 100 01/05/23 09:12 Oxygen Delivery Room Air 01/05/23 09:12 Reviewed MDM - URI/Sore Throat MDM Narrative Medical decision making narrative: Patient would like to be tested for influenza. Influenza negative. Symptoms likely viral in etiology. Discussed [id number] treat
== END 2023-01-05 10:22 | disposition home or self-care (01) ==
PROVIDERS: Emergency Provider Nurse Practitioner; PCP Student in an Organized Health Care Education/Training Program
DX: B34.9 Viral infection, unspecified (principal)
CPT/HCPCS: 87081; 87804; 87880; 99213; G0463

== ENCOUNTER 2023-03-09 09:25 | Emergency (ER) | payer OTHER, SELFPAY ==
[2023-03-09 09:41] VITALS: BP 93/73; PULSE 85; RESP 16; TEMP 36.5; O2SAT 100
--- NOTE | 2023-03-09 09:49 | ED.NAVMDI ---
HPI - Nausea/Vomiting/Diarrhea General Chief complaint: Nausea/Vomiting/Diarrhea Stated complaint: diarrhea,lower back pain Time Seen by Provider: 03/09/23 10:24 Source: patient and RN notes reviewed Mode of arrival: ambulatory Limitations: no limitations History of Present Illness HPI Narrative: 37-year-old female presents concern for diarrhea and back pain. Reports she has had diarrhea for about 6 days. She started having back pain this morning. She reports she used a lidocaine patch in ibuprofen for her back pain which improved but did not resolve. She reports some nausea without vomiting. Denies abdominal pain. She denies fever, body aches, sweats. Reports 2 episodes of chills. She reports she works at a daycare. She denies loss of bowel or bladder function, perianal anesthesia, weakness in any extremity. MD elicited complaint: diarrhea Related Data Allergies Allergy/AdvReac Type Severity Reaction Status Date / Time No Known Allergies Allergy Verified 03/09/23 09:39 Review of Systems Review of Systems: CONSTITUTIONAL: Report malaise, chills. Did sweats, or fever. ENT: Denies rhinorrhea, congestion, sinus pain, otalgia or sore throat. CARDIOVASCULAR: Denies chest pain, palpitations, or edema. RESPIRATORY: Denies cough or dyspnea. GASTROINTESTINAL: Denies abdominal pain. Reports nausea and diarrhea. Denies loss of bowel function GENITOURINARY: Denies dysuria or hematuria. Reports urine frequency. Denies loss of bladder function MUSCULOSKELETAL: Denies myalgia. Reports right low back pain NEUROLOGIC: Denies headache. All systems reviewed & are unremarkable except as noted in HPI and below PMFSH Past Medical History Medical History (Updated 03/09/23 @ 10:29 by Katiana Santana NP) Back pain Depression Surgical History Surgical History History of laparoscopic appendectomy 10/06/19 Family History Family History Father Cerebrovascular accident Social History Social History Smoking status: Never smoker Second hand tobacco smoke exposure: No Substance use: never Gender identity (if verbalized by the patient): Female Spiritual care concerns: No Comments At time of signature, agree with nursing past medical, surgical, social and family history. There is no relevant family history pertinent to the presenting complaint Exam Narrative: GENERAL: Well-appearing, well-nourished, and in no acute distress. HEAD: Normocephalic, atraumatic. EYES: PERRLA and EOMI. NECK: Supple. No lymphadenopathy. CHEST: Clear to auscultation. No respiratory distress. HEART: Regular rate and rhythm. Distal pulses palpable and equal, cap refill <3 seconds ABDOMEN: Soft, nontender, nondistended, normal active bowel sounds, no palpable or pulsatile masses. No CVA tenderness MUSCULOSKELETAL: Normal range of motion and strength in all extremities; 5/5 strength with hip flexion and extension, dorsiflexion and extension, knee flexion and extension, plantar flexion and extension. Normal sensation in dermatomal distributions with sensitivity to light touch and pain. No midline back tenderness to palpation. No paraspinal tenderness. Transfers from lying to sitting to standing. SKIN: Warm, dry, no rash. No ecchymosis, erythema, open wounds to back. NEURO: No focal deficits. Alert and oriented x3. Normal gait. PSYCH: Normal mood and affect Course Course Emergency Course: Patient is aware of diagnosis, understands and agrees to treatment plan. Anticipatory guidance given. Patient agrees to follow-up as directed and is aware of reasons to seek care at the emergency department. Portions of this record may have been created with voice recognition software Level of Care: Express Care Visit Vital Signs Vital signs: Reviewed. MDM - Nausea/Vom
== END 2023-03-09 10:44 | disposition home or self-care (01) ==
PROVIDERS: Emergency Provider Nurse Practitioner; PCP Student in an Organized Health Care Education/Training Program
DX: M54.50 Low back pain, unspecified (principal); R19.7 Diarrhea, unspecified; Z20.822 Contact with and (suspected) exposure to COVID-19
CPT/HCPCS: 81003; 87426; 87804; 99213; G0463

== ENCOUNTER 2024-04-10 09:32 | Emergency (ER) | payer OTHER, SELFPAY ==
[2024-04-10 09:48] VITALS: BP 97/65; PULSE 85; RESP 18; TEMP 36.1; O2SAT 100
--- NOTE | 2024-04-10 10:12 | ED.GENADULT ---
HPI - General Adult General Chief complaint: Upper Respiratory Infection Stated complaint: weakness, loss of voice Time Seen by Provider: 04/10/24 10:12 Source: patient Mode of arrival: ambulatory Limitations: no limitations History of Present Illness HPI narrative: 38-year-old female patient presents to the [facility] with complaints cold-like symptoms for the past 2-3 days. Patient states hers symptoms started Thursday night into Thursday. Patient states that she has had a lot of weakness and feeling very tired and fatigued. Patient states she has had a very mild cough has lost her voice and has had some chills. Denies any fevers that she is aware of. She just says that she slept all day yesterday and still feels like she can go back to bed today. Patient does work in a preschool. Denies any chest pain, shortness of breath. Denies any abdominal pain, nausea, vomiting or diarrhea. Related Data Home Medications ?Medication ?Instructions ?Recorded ?Confirmed ?Last Taken ?Type No Home Medications 04/10/24 04/10/24 Unknown History Allergies Allergy/AdvReac Type Severity Reaction Status Date / Time No Known Allergies Allergy Verified 04/10/24 09:58 Review of Systems Review of Systems: CONSTITUTIONAL: Denies fever, chills, or sweats. Positive body aches EYES: Denies visual changes, redness, or discharge. ENT: Denies rhinorrhea, congestion, positive sore throat, denies otalgia. CARDIOVASCULAR: Denies chest pain, palpitations, or edema. RESPIRATORY: positive mild cough denies dyspnea. GASTROINTESTINAL: Denies abdominal pain, nausea, vomiting, or diarrhea. GENITOURINARY: Denies dysuria or hematuria. SKIN: Denies rash or itching. MUSCULOSKELETAL: Denies back pain, joint pain, or myalgia. NEUROLOGIC: Denies headache, numbness, or weakness. PSYCHIATRIC: Denies anxiety or depression. [facility] Past Medical History Medical History Back pain Depression Surgical History Surgical History History of laparoscopic appendectomy 10/06/19 Family History Family History Father Cerebrovascular accident Social History Social History Smoking status: Never smoker Second hand tobacco smoke exposure: No Substance use: never Gender identity (if verbalized by the patient): Female Spiritual care concerns: No Comments At the time of my signature I agree with nursing past medical history, surgical, social, and family history. There is no relevant family history pertinent to the presenting complaint. Exam Narrative: GENERAL: Well-appearing, well-nourished, and in no acute distress. HEAD: Normocephalic, atraumatic. EYES: PERRLA and EOMI. ENT: Nares with edema noted bilaterally, no rhinorrhea or epistaxis. Mucous membranes moist. posterior pharynx with some postnasal drip but no tonsillar enlargement, no exudates or lesions present. Bilateral TMs are clear there is some cerumen noted to the right canal. NECK: Supple. No lymphadenopathy CHEST: Clear to auscultation. No respiratory distress. HEART: Regular rate and rhythm. No murmur heard. Normal peripheral pulses. ABDOMEN: Soft, nontender, nondistended, normal active bowel sounds. EXTREMITIES: Normal range of motion. No edema. SKIN: Warm, dry, no rash. NEURO: No focal deficits. Alert and oriented x3. Course Course Level of Care: Express Care Visit Vital Signs Vital signs: Vital Signs Temperature 36.1 C L 04/10/24 09:48 Pulse Rate 85 04/10/24 09:48 Respiratory Rate 18 04/10/24 09:48 Blood Pressure 97/65 L 04/10/24 09:48 Pulse Oximetry 100 04/10/24 09:48 Oxygen Delivery Room Air 04/10/24 09:48 Temperature 36.1 C L 04/10/24 09:48 Pulse Rate 85 04/10/24 09:48 Respiratory Rate 18 04/10/24 09:48 Blood Pressure 97/65 L 04/10/24 09:48 Pulse Oximetry 100 04/10/24 09:48 Oxygen Delivery Room Air 04/10/24 09:48 Vital signs reviewed. Medical Decision Making MDM Narrative Medical decision making narrative: Discussed with patient that her test results for the COVID, influenza and strep tests all came back negative. We will send the strep swab to the lab for culture and if it comes back positive at that time we will call her in an antibiotic. Discussed with patient continue to take [id number] medications to help with her symptoms including increasing her resting getting plenty of fluids. Discussed with her this is most likely a virus and should pass in a couple of days. Patient verbalized understanding denies any other questions or concerns at this time. Differential Diagnosis Differential Diagnosis: Differential diagnosis: Allergic rhinitis, chronic sinusitis, tonsillitis, acute sinusitis, infectious mononucleosis, seasonal influenza, pertussis, diphtheria, meningococcal disease, viral syndrome, viral bronchitis, RSV, COVID-19 Vital Signs Vital Signs: Vital Signs Temperature 36.1 C L 04/10/24 09:48 Pulse Rate 85 04/10/24 09:48 Respiratory Rate 18 04/10/24 09:48 Blood Pressure 97/65 L 04/10/24 09:48 Pulse Oximetry 100 04/10/24 09:48 Oxygen Delivery Room Air 04/10/24 09:48 Temperature 36.1 C L 04/10/24 09:48 Pulse Rate 85 04/10/24 09:48 Respiratory Rate 18 04/10/24 09:48 Blood Pressure 97/65 L 04/10/24 09:48 Pulse Oximetry 100 04/10/24 09:48 Oxygen Delivery Room Air 04/10/24 09:48 Lab Data Labs: Lab Results 04/10/24 Range/Units 10:21 POC Influenza A Ag Negative (Negative) POC Influenza B Ag Negative (Negative) POC SARS CoV-2 Ag Negative (Negative) POC Grp A Strep Screen Negative (Negative) Critical Care Time Critical Care Time Critical Care Time: No Discharge Plan Discharge Clinical Impression: Viral URI Patient Disposition: Home, Self-Care Condition: Stable Instructions: Antibiotic Form, Viral Syndrome (ED) Additional Instructions: Viral illness may last between 7-12days; antibiotic is NOT recommended at this time. Recommend antihistamine such as Benadryl at night time and Claritin/Zyrtec/Josie during the day Cough syrup may cause drowsiness; avoid driving or take it at night time. Also, recommend symptomatic treatment includes: rest, fluids, and increase humidity of the air at home. Recommend Acetaminophen or nonsteroidal anti-inflammatory agents (NSAIDs) as directed in the bottle to reduce fever and/pain/headache. Avoid smoking/second-hand smoke. Limit visits to areas with large crowds. Please schedule a follow-up visit with your personal physician for further evaluation and treatment within 3-5days. Including recheck and discussion of your blood pressure. If your symptoms persist, change or worsen significantly before you can contact your personal physician then please, without delay, go to the emergency department for further evaluation. Patient Language: Luxembourgish Prescriptions: No Action No Home Medications Follow-up/Referrals: Miguel,DO Don [Primary Care Provider] - Time of Disposition: 10:26
[2024-04-10 10:22] LABS: EDCOVIDSCREEN Negative (Negative)
[2024-04-10 10:23] LABS: EDINFLUASCREEN Negative (Negative); EDINFLUBSCREEN Negative (Negative); EDSTREPNEGPOS1 Negative (Negative)
== END 2024-04-10 10:30 | disposition home or self-care (01) ==
PROVIDERS: Emergency Provider Nurse Practitioner Family; PCP Student in an Organized Health Care Education/Training Program
DX: J06.9 Acute upper respiratory infection, unspecified (principal); Z20.822 Contact with and (suspected) exposure to COVID-19
CPT/HCPCS: 87081; 87426; 87804; 87880; 99213; G0463

== ENCOUNTER 2024-06-24 09:45 | Outpatient (CLI) | payer OTHER, SELFPAY ==
--- NOTE | ~2024-06-24 | XR_ITS ---
Lumbosacral Spine: AP and lateral views Clinical History: Pain Findings: The normal lordotic curve is maintained. There are bilateral L5 pars interarticularis defec ts, with 9 mm anterolisthesis of L5 over S1. No other significant abnormality seen. The sacroiliac elizabeth ints are normally outlined. Impression: Bilateral L5 pars interarticularis defects, with 9 mm anterolisthesis of L5 over S1. Reviewed, dictated and finalized at location . Impression: Bilateral L5 pars interarticularis defects, with 9 mm anterolisthesis of L5 ove r S1.
--- NOTE | ~2024-06-24 | XR_ITS ---
Thoracic spine: Clinical Indication: Back pain AP and lateral views were performed. No fracture is seen. There is normal alignment of the vertebrae. The intervertebral disc spaces appe ar normal. Paravertebral soft tissues appear normal. Impression: No significant abnormalities noted. Reviewed, dictated and finalized at [facility]. Impression: No significant abnormalities noted.
--- NOTE | ~2024-06-24 | XR_ITS ---
Cervical Spine: AP, lateral, open-mouth views Clinical History: Pain Findings: There is straightening of the normal cervical lordosis. The vertebral bodies and posterior elements appear intact. The intervertebral disc spaces are well maintained. Pre-vertebral soft tiss ues are unremarkable. Impression: Straightening of the normal cervical lordosis, otherwise unremarkable exam. Reviewed, dictated and finalized at location . Impression: Straightening of the normal cervical lordosis, otherwise unremarkable exam.
--- OUTSIDE RECORDS SUMMARY | 2024-06-24 09:52 | XMS_ITS | Encounter Summary ---
Author Organization [facility] Address [address] [place] [address] Care Team Providers Care Probation Manager Name Role Phone Don Rivera DO Primary Care Provider + Encounter Details Date Type Department Care Team (Latest Contact Info) Description 06/24/2024 Travel Social History Tobacco Use Types Packs/Day Years Used Date Smoking Tobacco: Never Passive Smoke Exposure: Never Smokeless Tobacco: Never Alcohol Use Standard Drinks/Week Comments Yes 1.7 (1 standard drink = 0.6 oz p ure alcohol) 1-3 times a week PHQ-2 Answer Date Recorded Patient Health Questionnaire-2 Score 2 04/15/2024 Comments No Sex and Gender Information Value Date Recorded Sex Assigned at Female 04/15/2024 9:20 AM SECURITY OPERATIONS CENTER OPERATOR Legal Sex Female 7:53 PM CDT Gender Identity Female 04/15/2024 9:20 AM SECURITY OPERATIONS CENTER OPERATOR Sexual Orientation Not on file 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
--- OUTSIDE RECORDS SUMMARY | 2024-06-24 09:52 | XMS_ITS | Encounter Summary ---
Author Organization [facility] Address [address] [place] [address] Care Team Providers Care Cork Cutter Name Role Phone Don Rivera DO Primary Care Provider + Encounter Details Date Type Department Care Team (Late st Contact Info) Description 04/23/[address] [facility] Family & Internal Medicine [id number] [place] [phone] [facility] Provider Appointment request Social History Tobacco Use Types Packs/Day Years Used Date Smoking Tobacco: Never Smokeless Tobacco: Never Alcohol Use Standard Drinks/Week Comments Yes 0 (1 standard drink = 0.6 oz pur e alcohol) Once a week PHQ-2 Answer Date Recorded PHQ-2 Score 4 05/10/2018 Comments Unknown Sex and Gender Information Value Date Recorded Sex Assigned at Female 04/15/2024 9:20 AM SUPERVISOR HAIRSPRING FABRICATION Legal Sex Female 7:53 PM CDT Gender Identity Female 04/15/2024 9:20 AM SUPERVISOR HAIRSPRING FABRICATION Sexual Orientation Not on file 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
--- OUTSIDE RECORDS SUMMARY | 2024-06-24 09:52 | XMS_ITS | Clinical Summary ---
Author Organization [facility] Address [address] [place] [address] Care Team Providers Care Engraver Copperplate Name Role Phone Unavailable Primary Care Provider Unavailabl e Source Comments [facility],non-owned Affiliates and Associated Physician Practices is amultiple site organization consisting of ambulatory clinics and hospital sitesin [place], [place], [place] and [place]. This disclosure is being madepursuant to the Care Everywhere program and may not contain all information available regarding this patient. Last updated 17.[employer] [facility] Allergies No known active allergies Medications * Be aware that medications may not be up to date on this document. Alwaysverify current medications with the patient. fluticasone propionate (FLONASE) 50 MCG/ACT nasal sprayIndications :Acute sinusitis, recurrence not specified, unspecified location [place] 2 sprays into each nostril once daily 1 bottles 8 Active albuterol HFA (VENTOLIN HFA) 108 (90 BASE) MCG/ACT inhalerIndicatio ns:Acute bronchitis, unspecified organism Inhale 2 puffs by mouth every 6 hours as needed for Wheezing or Cough 1 Inhaler 8 Active Active Problems No known active problems Family History Medical History Relation Name Comments CVA Father Hypertension Father Asthma Neg Hx Autoimmune Disease Neg Hx Bipolar Disorder Neg Hx Cancer - Breast Neg Hx Cancer - Colon Neg Hx Cancer - Other Neg Hx Cancer - Ovarian Neg Hx Cancer - Pancreatic Neg Hx Cancer - Prostate Neg Hx Depression Neg Hx Eczema Neg Hx Migraine Neg Hx Osteoporosis Neg Hx Seizures Neg Hx Sudd. <30 Neg Hx Thyroid Disease Neg Hx Ulcerative Colitis Neg Hx Relation Name Status Comments Father Alive Mother Alive Social History Tobacco Use Types Packs/Day Years Used Date Smoking Tobacco: Never Smokeless Tobacco: Never Tobacco Cessation:Counseling Given: No Alcohol Use Standard Drinks/Week Comments No 0 (1 standard drink = 0.6 oz pur e alcohol) Comments Unknown Sex and Gender Information Value Date Recorded Sex Assigned at Not on file Legal Sex Female 10:40 AM CDT Gender Identity Not on file Sexual Orientation Not on file Last Filed Vital Signs Vital Sign Reading Time Taken Comments Blood Pressure 110/70 12/23/2017 10:04 AM PROGRAMMING ENGINEER Pulse 80 12/23/2017 10:04 AM PROGRAMMING ENGINEER Temperature 36.6 C (97.9 F) 12/23/2017 10:04 AM PROGRAMMING ENGINEER Respiratory Rate 20 12/23/2017 10:04 AM PROGRAMMING ENGINEER Oxygen Saturation 97% 12/23/2017 10:04 AM PROGRAMMING ENGINEER Inhaled Oxygen Concentration - - Weight 49.9 kg (110 lb) 12/23/2017 10:04 AM PROGRAMMING ENGINEER Height 165.1 cm (5' 5 ) 12/23/2017 10:04 AM PROGRAMMING ENGINEER Body Mass Index 18.3 12/23/2017 10:04 AM PROGRAMMING ENGINEER Plan of Treatment Health Maintenance Due Date Last Done Comments HIV SCREENING 2001 HEPATITIS C SCREENING 05/08/2004 DTAP/TDAP/TD VACCINES (1 - Tdap) 2005 HEPATITIS B VACCINE (1 of 3 - 19+ 3-dose series) 2005 COVID-19 VACCINE ( - 2023-2 5 season) 2023 DEPRESSION SCREENING 02/10/2024 INFLUENZA VACCINE (Season Ended) 2024 ZOSTER VACCINE (1 of 2) 2036 HIB VACCINE Aged Out No longer eligi ble based on patient's age to complete this topic HPV VACCINE Aged Out No longer eligi ble based on patient's age to complete this topic MENINGOCOCCAL (Group B) VACC INE SHARED DECISION-MAKING Aged Out No longer eligibl e based on patient's age to complete this topic MENINGOCOCCAL GROUPS A/C/Y/W VACCINE Aged Out No longer eligible b ased on patient's age to complete this topic PNEUMOCOCCAL VACCINE Aged Out No long er eligible based on patient's age to complete this topic Insurance [employer]
--- OUTSIDE RECORDS SUMMARY | 2024-06-24 09:52 | XMS_ITS | Clinical Summary ---
Author Organization [facility] Address [address] [place] [id number] Care Team Providers Care Inside Meter Tester Name Role Phone Don Rivera DO Primary Care Provider + Allergies No known active allergies Medications acetaminophen (TYLENOL) 325 MG tablet Take 2 tablets (650 mg total) by mouth every 6 (six) hours as needed for Pain. Active ibuprofen (MOTRIN) 200 MG tablet Take 1 tablet (200 mg total) by mouth every 6 (six) hours as needed for Pain. Active hydrOXYzine (ATARAX) 25 MG tabletIndicati ons:Panic attack Take 1 tablet (25 mg total) by mouth 3 (three) times daily as needed for Itching. 30 tablet 2 4 025 Discontinued(P t. elected to discontinue med) Active Problems Problem Noted Date Diagnosed Date Vasovagal syncope 04/15/2024 Panic attack 04/15/2024 Gastroesophageal reflux disease without esophagi tis 04/16/2018 Moderate episode of recurrent major depressive d isorder 03/17/2018 Fatigue, unspecified type 03/17/2018 Nonintractable episodic headache, unspecified he adache type 03/17/2018 Resolved Problems Problem Noted Date Diagnosed Date Resolved Date Left foot pain 03/17/2018 04/15/2024 Encounters Date Type Department Care Team Description 06/24/2024 8:40 AM CDT Office Visit [facility] Family & Internal Medicine [address] [phone] Don Rivera DO Back Pain (Lower and mid back pain for 3 weeks. The patient states the pain comes and goes. She is doing stretches at home. ); URI (The patient states her congestion started 5-6 days ago. The patient took at home test and it was negative. The patient states she is starting to feel better.) 06/24/2024 Travel 05/17/2024 Telephone [facility] Family & Internal Medicine [address] [phone] Don Rivera, Advice 04/15/2024 9:00 AM ADMINISTRATION PHYSICIAN Office Visit [facility] Family & Internal [address] [phone] Don Rivera, DO Panic Attack (The patient presents for a 3 month follow up. The patient states she has not had any panic attacks. ); URI (The patient went to urgent care on 03/13/2024. The patient has had cough, sinus pressure and congestion since 04/04/2024. The patient tested negative for covid, flu and strep. [facility]. ) 04/15/2024 Travel 04/10/2024 [facility] Scanned, Doc [facility] Lab (SCAN) 04/10/2024 [facility] Scanned, Doc [facility] Lab (SCAN) from Last 3 Months Immunizations Immunization Administration Dates Next Due Fluzone 6 Months+ Quad (0.5 mL Prefilled Syringe) 12/03/2020,11/28/2019 Influenza (Generic) 11/29/2015,11/29/2013 Influenza Adult (Generic) 11/28/2019,12/03/2017, 11/08/2017 Tdap (Adacel) 08/28/2020 09/07/2020 Tdap (Boostrix) 12/24/2015,12/13/2013 Family History Medical History Relation Comments Asthma Brother CABG Father x 5 Heart Disease Father Stent Cardiac Father Stroke Father Diabetes Maternal Aunt Arthritis Mother Cancer Paternal Aunt Diabetes Paternal Grandfather Relation Status Comments Brother Father Maternal Aunt Mother Paternal Aunt Paternal Grandfather Social History Tobacco Use Types Packs/Day Years Used Date Smoking Tobacco: Never Passive Smoke Exposure: Never Smokeless Tobacco: Never Tobacco Cessation:Counseling Given: Yes Alcohol Use Standard Drinks/Week Comments Yes 1.7 (1 standard drink = 0.6 oz p ure alcohol) 1-3 times a week PHQ-2 Answer Date Recorded Patient Health Questionnaire-2 Score 2 04/15/2024 Comments No Sex and Gender Information Value Date Recorded Sex Assigned at Female 04/15/2024 9:20 AM ADMINISTRATION PHYSICIAN Legal Sex Female 7:53 PM CDT Gender Identity Female 04/15/2024 9:20 AM ADMINISTRATION PHYSICIAN Sexual Orientation Not on file 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 Not on file Not on file Last Filed Vital Signs Vital Sign Reading Time Taken Comments Blood Pressure 92/64 06/24/2024 9:00 AM CDT Pulse 71 06/24/2024 9:00 AM CDT Temperature 36.7 C (98.1 F) 06/24/2024 9:00 AM CDT Respiratory Rate 16 06/24/2024 9:00 AM CDT Oxygen Saturation 99% 06/24/2024 9:00 AM CDT Inhaled Oxygen Concentration - - Weight 54.5 kg (120 lb 3.2 oz) 06/24/2024 9:00 A M CDT Height 165.1 cm (5' 5 ) 06/24/2024 9:00 AM CDT Body Mass Index 20 06/24/2024 9:00 AM CDT Plan of Treatment Health Maintenance Due Date Last Done Comments ASCVD Statin 1986 Cervical Cancer Screening Pap Smear (Age 30 to 64) Every 3 Years 1986 Cervical Cancer Screening Pap with HPV Testing (Age 30 to 64) Every 5 Years 2016 Annual Physical 05/20/2023 05/19/2022 Hepatitis B Vaccines (1 of 3 - 19+ 3-dose series) 07/25/2024 Postponed from 2005 (Future Appointment) Pneumococcal Vaccine: Pediatrics (0 to 5 Years) and At-Risk Patients (6 to 49 Years) (1 of 2 - PCV) 07/25/2024 Postponed from 2005 (Future Appointment) COVID-19 Vaccine ( season) 2024 11/04/2021, 02/13/2021, 05/08/2020, Additional history exists Postponed from 10/11/2023 (Going to Outside Clinic) Cervical Cancer Screening with HPV 10/25/2024 Postponed from 2016 (Going to Outside Clinic) DTaP, Tdap and Td Vaccines (4 - Td or Tdap) 08/28/2030 08/28/2020, 12/24/2015, 12/13/2013 Hepatitis C Completed 05/19/2022 PHQ-2 (Physician [place]) Completed 04/15/2024 HPV Vaccines Aged Out No longer eligi ble based on patient's age to complete this topic Meningococcal B Vaccine Aged Out No l onger eligible based on patient's age to complete this topic Meningococcal Vaccine Aged Out No lise melissa eligible based on patient's age to complete this topic RSV Immunizations Under 20 Months Aged Out No longer eligible based on patient's age to complete this topic Procedures Procedure Name Priority Date/Time Associated Diagnosis Comments OUTSIDE LAB (SCAN ORDER) 04/10/2024 OUTSIDE LAB COVID-19 (SCAN ORDER) Routine 04/10/2024 OUTSIDE LAB (SCAN ORDER) 04/10/2024 OUTSIDE LAB (SCAN ORDER) 04/10/2024 HEPATITIS C ANTIBODY Routine 05/19/2022 12:00 AM CDT Encounter for preventative adult health care examination Screening for lipid disorders Screening for endocrine, metabolic and immunity disorder Need for hepatitis C screening test from Last 3 Months or Most Recently Relevant to Health Maintenance Results * OUTSIDE LAB COVID-19 (04/10/2024) CORONAVIRUS SARS COV 2 PCR (RESP) NOT DETECTED NOT DETECTED [facility] 04/10/2024 [facility] Scanned SCANNING Final Resu lt [facility] * OUTSIDE LAB (SCAN ORDER) (04/10/2024) Only the most recent of3 resultswithin the time period is included. 04/10/2024 [facility] Scanned SCANNING Final Resu lt * HEPATITIS C ANTIBODY (05/19/2022 12:00 AM CDT) 05/19/2022 Don Rivera DO LABORATORY Final Re sult [facility] from Last 3 Months or Most Recently Relevant to Health Maintenance Insurance [employer] Care Teams Inside Meter Tester Relationship Specialty Start Date End Date Don Rivera DO [address] [place] [address] PCP - General FAMILY PRACTICE 02/15/18
--- OUTSIDE RECORDS SUMMARY | 2024-06-24 09:52 | XMS_ITS | Encounter Summary ---
Author Organization [facility] Address [address] [place] [address] Care Team Providers Care Physiotherapy Practice Manager Name Role Phone Don Rivera DO Primary Care Provider + Encounter Details Date Type Department Care Team (Late st Contact Info) Description 05/22/2022 MyChart Message Enc [facility] Family & Internal Medicine [facility] [address] [place] [phone] Don Rivera DO [address] [place], [place] [id number] Lab results Social History Tobacco Use Types Packs/Day Years Used Date Smoking Tobacco: Never Passive Smoke Exposure: Never Smokeless Tobacco: Never Alcohol Use Standard Drinks/Week Comments Yes 1.7 (1 standard drink = 0.6 oz p ure alcohol) 1-3 times a week PHQ-2 Answer Date Recorded Patient Health Questionnaire-2 Score 2 05/19/2022 Comments No Sex and Gender Information Value Date Recorded Sex Assigned at Female 04/15/2024 9:20 AM BRIM AND CROWN PRESSER Legal Sex Female 7:53 PM CDT Gender Identity Female 04/15/2024 9:20 AM BRIM AND CROWN PRESSER Sexual Orientation Not on file 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 No / Unsure 05/19/2022 7:24 AM CDT documented as of this encounter Plan of Treatment Not on file documented as of this encounter Visit Diagnoses Not on filedocumented in this encounter Additional Health Concerns Assessment Noted Time PHQ-9 Depression Total Score: 019 11:25 AM BRIM AND CROWN PRESSER documented as of this encounter Care Teams Physiotherapy Practice Manager Relationship Specialty Start Date End Date Don Rivera DO [address] [place] [id number] PCP - General FAMILY PRACTICE 02/15/18 documented as of this encounter
--- OUTSIDE RECORDS SUMMARY | 2024-06-24 09:52 | XMS_ITS | Encounter Summary ---
Author Organization [facility] Address [address] [place] [id number] Care Team Providers Care Cut Out Press Operator Name Role Phone Don Rivera DO Primary Care Provider + Reason for Referral * - New Request Specialty Diagnoses / Procedures Referred By Contac t Referred To Contact Diagnoses Chronic back pain, unspecified back location, unspecified back pain laterality Procedures XR CERV SPINE 3V Don Rivera DO [address] [place] [address] Phone: tel: fax: Referral ID Status Reason Start Date Expiration Date V isits Requested Visits Authorized [id number] New Request 06/24/2024 1 1 * - New Request Specialty Diagnoses / Procedures Referred By Contac t Referred To Contact Diagnoses Chronic back pain, unspecified back location, unspecified back pain laterality Procedures XR THOR SPINE 3V Don Rivera DO [address] [place] [address] Phone: tel: fax: Referral ID Status Reason Start Date Expiration Date V isits Requested Visits Authorized [id number] New Request 06/24/2024 1 1 * - New Request Specialty Diagnoses / Procedures Referred By Contac t Referred To Contact Diagnoses Chronic back pain, unspecified back location, unspecified back pain laterality Procedures XR LUMB SPINE 3V Don Rivera DO [address] [place] [address] Phone: tel: fax: Referral ID Status Reason Start Date Expiration Date V isits Requested Visits Authorized [id number] New Request 06/24/2024 1 1 Reason for Visit * Reason Comments Back Pain Lower and mid back p ain for 3 weeks. The patient states the pain comes and goes. She is doing stretches at home. URI The patient states h er congestion started 5-6 days ago. The patient took at home test and it was negative. The patient states she is starting to feel better. Encounter Details Date Type Department Care Team (Late st Contact Info) Description 06/24/2024 8:40 AM CDT [facility] [address] [place] [id number] Don Rivera DO [address] [place], [place] [id number] Back Pain (Lower and mid back pain for 3 weeks. The patient states the pain comes and goes. She is doing stretches at home. ); URI (The patient states her congestion started 5-6 days ago. The patient took at home test and it was negative. 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 [facility] in [place] for urgent care nurse practitioner. documented in this encounter Progress Notes * Don Rivera DO - 06/24/2024 8:40 AM CDT Images from the original note were not included. GENERAL OFFICE VISIT Encounter Date: 06/24/2024 Chief Complaint: 39-year-old female presents for Back Pain (Lower and mid back pain for 3 weeks. The patient states the pain comes and goes. She is doing stretches at home. ) and URI (The patient states her congestion started 5-6 days ago. The patient took at home test and it was negative. The patient states she isstarting to feel better.) HPI: Pt presents for back pain. Pt notes it is lower and mid back pain. Pt notes it is coming and going.Pt did stretching which did not help. She notes she was told she had some hyperextension of her neck. Patient states symptoms have been present for 6 days. Symptoms include congestion, cough, sneezing,and itchy eyes. Pertinent negatives include Fevers, Chills, and SOB. Patient has no sick contacts. OTC medications tried include Josie and Benadryl. Pt did a COVID test two days ago which was negative. Review of Systems Constitutional: Negative for fever. HENT: See HPI Musculoskeletal: See HPI Patient Active Problem List Diagnosis Moderate episode of recurrent major depressive disorder (CMS/HCC) Fatigue, unspecified type Nonintractable episodic headache, unspecified headache type Gastroesophageal reflux disease without esophagitis Vasovagal syncope Panic attack Past Medical History[1] Past Surgical History[2] Family History[3] Social History[4] Immunization History Administered Date(s) Administered Fluzone 6 Months+ Quad (0.5 mL Prefilled Syringe) 11/28/2019, 12/03/2020 Influenza (Generic) 11/29/2013, 11/29/2015 Influenza Adult (Generic) 11/08/2017, 12/03/2017, 11/28/2019 PFIZER COVID-19 (ORIGINAL FORMULATION, PURPLE CAP) mRNA, LNP-S, PF, 30 MCG/0.3 ML DOSE 04/17/2020, 05/08/2020, 02/13/2021 PFIZER COVID-19 BIVALENT (12+) mRNA, LNP-S, PF, 30 MCG/0.3 ML DOSE 11/04/2021 Tdap (Adacel) 08/28/2020 Tdap (Boostrix) 12/13/2013, 12/24/2015 Current Outpatient Medications Medication Sig Dispense Refill acetaminophen (TYLENOL) 325 MG tablet Take 2 tablets (650 mg total) by mouth every 6 (six) hours asneeded for Pain. ibuprofen (MOTRIN) 200 MG tablet Take 1 tablet (200 mg total) by mouth every 6 (six) hours as needed for Pain. No current facility-administered medications for this visit. No Known Allergies Objective: Filed Vitals: 06/24/24 0900 BP: 92/64 Pulse: 71 Resp: 16 Temp: 98.1 Â°F (36.7 Â°C) TempSrc: Skin SpO2: 99% Weight: 54.5 kg (120 lb 3.2 oz) Height: 1.651 m (5' 5 ) Physical Exam Vitals and nursing note reviewed. HENT: Head: Normocephalic and atraumatic. Right Ear: Tympanic membrane, ear canal and external ear normal. Left Ear: Tympanic membrane, ear canal and external ear normal. Eyes: Conjunctiva/sclera: Conjunctivae normal. Cardiovascular: Rate and Rhythm: Normal rate and regular rhythm. Heart sounds: Normal heart sounds. No murmur heard. No friction rub. No gallop. Pulmonary: Effort: Pulmonary effort is normal. No respiratory distress. Breath sounds: Normal breath sounds. No wheezing or rales. Abdominal: Palpations: Abdomen is soft. Tenderness: There is no abdominal tenderness. Musculoskeletal: General: No tenderness. Neurological: Mental Status: She is alert. Assessment & Plan: Salina Gonzalez was seen today for back pain and uri. Diagnoses and all orders for this visit: Chronic back pain, unspecified back location, unspecified back pain laterality - XR LUMB SPINE 3V; Future - XR THOR SPINE 3V; Future - XR CERV SPINE 3V; Future Seasonal allergies Discussion/Summary: Recommend treatment for allergies versus URI; consider abx therapy if worsening. Recommended urgent care nurse practitioner with [facility] but also ordered XR's as per above. F/u with regular visits or soonerif needed. Pt v/u. I personally spent a total of 28 minutes on the day of the encounter. This includes [id number] and urt-vgim-ey-face time I provided on the day of the encounter & excludes time spent performing separately reportable services. Don Rivera DO [1] Past Medical History: Diagnosis Date Anxiety 2016 [place] to live with it Broken thumb Right thumb Depression Left foot pain 03/17/2018 Syncope Associated with cycles [2] Past Surgical History: Procedure Laterality Date APPENDECTOMY 10/08/2019 TONSILLECTOMY AND ADENOIDECTOMY 2009 [3] Family History Problem Relation Name Age of Onset Arthritis Mother Neli Rule Stroke Father Mik Rule Heart Disease Father Mik Rule CABG Father Mik Rule x 5 Stent Cardiac Father Mik Rule Asthma Brother Fred Rule Diabetes Paternal Grandfather [place] Rule Diabetes Maternal Aunt Emily Agne Cancer Paternal Aunt Yulissa Chance [4] Social History Tobacco Use Smoking status: Never Passive exposure: Never Smokeless tobacco: Never Substance Use Topics Alcohol use: Yes Alcohol/week: 1.7 standard drinks of alcohol Types: 1 Glasses of wine per week Comment: 1-3 times a week Drug use: No documented in this encounter Plan of Treatment Scheduled Orders Name Type Priority Associated Diagnoses Orde r Schedule XR LUMB SPINE 3V Imaging Routine Chronic back pain, unspecified back location, unspecified back pain laterality Expected: 06/24/2024, Expires: 06/24/2025 XR THOR SPINE 3V Imaging Routine Chronic back pain, unspecified back location, unspecified back pain laterality Expected: 06/24/2024, Expires: 06/24/2025 XR CERV SPINE 3V Imaging Routine Chronic back pain, unspecified back location, unspecified back pain laterality Expected: 06/24/2024, Expires: 06/24/2025 documented as of this encounter Visit Diagnoses Diagnosis Chronic back pain, unspecified back location, unspecified back pain laterality- Primary Seasonal allergies Allergic rhinitis, cause unspecified documented in this encounter Additional Health Concerns Assessment Noted Time PHQ-9 Depression Total Score: 19 019 11:25 AM NAPPER RUNNER documented as of this encounter Care Teams Cut Out Press Operator Relationship Specialty Start Date End Date Don Rivera DO [facility] [place] [address] PCP - General FAMILY PRACTICE 02/15/18 documented as of this encounter
== END 2024-06-24 09:46 | disposition home or self-care (01) ==
PROVIDERS: PCP Student in an Organized Health Care Education/Training Program; Visit Provider Student in an Organized Health Care Education/Training Program
DX: M43.17 Spondylolisthesis, lumbosacral region (principal)
CPT/HCPCS: 72040; 72072; 72100

== ENCOUNTER 2024-09-27 13:22 | Outpatient (CLI) | payer OTHER, SELFPAY ==
--- OUTSIDE RECORDS SUMMARY | 2024-09-27 13:38 | XMS_ITS | Clinical Summary ---
Author Organization [facility] Address [address] [place] [address] Care Team Providers Care Executive Talent Acquisition Consultant Name Role Phone Unavailable Primary Care Provider Unavailabl e Source Comments [facility],non-owned Affiliates and Associated Physician Practices is amultiple site organization consisting of ambulatory clinics and hospital sitesin [place], [place], [place] and [place]. This disclosure is being madepursuant to the Care Everywhere program and may not contain all information available regarding this patient. Last updated 17.[employer] [facility] Allergies No known active allergies Medications * Be aware that medications may not be up to date on this document. Alwaysverify current medications with the patient. fluticasone propionate (FLONASE) 50 MCG/ACT nasal sprayIndications :Acute sinusitis, recurrence not specified, unspecified location [place] 2 sprays into each nostril once daily [...] Comments Blood Pressure 110/70 12/23/2017 10:04 AM POWER HAIR CLIPPER Pulse 80 12/23/2017 10:04 AM POWER HAIR CLIPPER Temperature 36.6 C (97.9 F) 12/23/2017 10:04 AM POWER HAIR CLIPPER Respiratory Rate 20 12/23/2017 10:04 AM POWER HAIR CLIPPER Oxygen Saturation 97% 12/23/2017 10:04 AM POWER HAIR CLIPPER Inhaled Oxygen Concentration - - Weight 49.9 kg (110 lb) 12/23/2017 10:04 AM POWER HAIR CLIPPER Height 165.1 cm (5' 5) 12/23/2017 10:04 AM POWER HAIR CLIPPER Body Mass Index 18.3 12/23/2017 10:04 AM POWER HAIR CLIPPER Plan of Treatment Health Maintenance Due Date Last Done Comments HIV SCREENING 2001 HEPATITIS C SCREENING 05/08/2004 DTAP/TDAP/TD VACCINES (1 - Tdap) 2005 HEPATITIS B VACCINE (1 of 3 - 19+ 3-dose series) 2005 HPV VACCINE (1 - 3-dose SCDM series) 2013 COVID-19 VACCINE (1 - 2023-2 5 season) 2023 DEPRESSION SCREENING 02/10/2024 INFLUENZA VACCINE (#1) 2024 ZOSTER VACCINE (1 of 2) 2036 [...] patient's age to complete this topic Insurance [facility]
[2024-09-27 14:22] LABS: Hematocrit 43.7 % (37.0-47.0); Hemoglobin 14.5 g/dL (12.0-15.0); Immature Granulocyte Percent A 0.3 % (0-0.5); Lymphocytes Absolute Auto 2.64 K/mm3 (0.9-3.2); Mean Corpuscular HGB Conc 33.2 g/dl (32-36); Mean Corpuscular Hemoglobin 30.0 pg (26-34); Mean Corpuscular Volume 90.3 fl (80-100); Nucleated Red Blood Cells Absolute Auto 0.000 K/mm3 (0.0-0.012); Nucleated Red Blood Cells Perc 0.0 % (0.0-0.2); Platelet Count Result 253 k/mm3 (150-375); Red Blood Count 4.84 M/mm3 (4.2-5.4); White Blood Count 6.2 K/mm3 (4.5-10.0)
[2024-09-27 14:49] LABS: Alanine Aminotransferase 19 U/L (6-35); Albumin Level 4.7 g/dL (3.5-5.1); Alkaline Phosphatase 43 U/L (38-126); Anion Gap 10 mmol/L (4-12); Aspartate Amino Transferase 28 U/L (14-36); Bilirubin,Total 0.8 mg/dL (0.2-1.3); Blood Urea Nitrogen 14 mg/dL (7-17); Calcium 9.4 mg/dL (8.4-10.2); Carbon Dioxide 25 mmol/L (22-30); Chloride 101 mmol/L (98-107); Cholesterol 192 mg/dL (0-200); Estimated Glomerular Filt Rate > 60; Glucose 90 mg/dL (65-110); HDL Direct 62 mg/dL; Potassium 3.9 mmol/L (3.4-5.0); Sodium 136 mmol/L (137-145); Total Protein 8.5 g/dL (6.3-8.2); Triglycerides 86 mg/dL (<150)
[2024-09-27 17:00] LABS: Thyroid Stimulating Hormone Reflex 2.210 uIU/mL (0.465-4.68)
== END 2024-09-27 13:23 | disposition home or self-care (01) ==
PROVIDERS: PCP Student in an Organized Health Care Education/Training Program; Visit Provider Student in an Organized Health Care Education/Training Program
DX: Z00.00 Encounter for general adult medical examination without abnormal findings (principal); Z13.220 Encounter for screening for lipoid disorders; Z13.29 Encounter for screening for other suspected endocrine disorder; Z13.228 Encounter for screening for other metabolic disorders; Z13.0 Encounter for screening for diseases of the blood and blood-forming organs and certain disorders involving the immune mechanism
CPT/HCPCS: 36415; 80053; 80061; 84443; 85025